=== PATIENT | female | born 1990 ===

== ENCOUNTER 2019-07-19 08:50 | Emergency (ER) | payer BC ==
[2019-07-19 09:09] VITALS: BP 91/48
--- NOTE | 2019-07-19 09:26 | UC ---
Complaint Female HPI - HPI Summary HPI Summary: 29yo female presenting with dysuria and hematuria since last night. Patient states she occasionally gets UTIs because she holds in her urine at work. Denies abdominal pain. Denies flank pain. Denies fever and chills. Denies n/v. Has not taken anything for symptom relief. - History Of Current Complaint Chief Complaint: UCGU Stated Complaint: URINARY Hx Obtained From: Patient Hx Last Menstrual Period: Dec ? Pain Intensity: 5 Pain Scale Used: 0-10 Numeric - Allergies/Home Medications Allergies/Adverse Reactions: Allergies Allergy/AdvReac Type Severity Reaction Status Date / Time No Known Allergies Allergy Verified 07/19/19 09:09 PMH/Surg Hx/FS Hx/Imm Hx Previously Healthy: Yes - Surgical History Surgical History: None - Family History Known Family History: Positive: Non-Contributory - Social History Alcohol Use: None Substance Use Type: None Smoking Status (MU): Never Smoked Tobacco Review of Systems All Other Systems Reviewed And Are Negative: Yes Constitutional: Positive: Negative. Negative: Fever, Chills Respiratory: Positive: Negative Cardiovascular: Positive: Negative Gastrointestinal: Positive: Negative. Negative: Abdominal Pain, Vomiting, Nausea Genitourinary: Positive: Dysuria, Hematuria Musculoskeletal: Positive: Negative Neurological: Positive: Negative Physical Exam Triage Information Reviewed: Yes Appearance: Well-Appearing, No Pain Distress, Well-Nourished Vital Signs: Initial Vital Signs Temp 98.0 F 07/19/19 09:03 Pulse 70 07/19/19 09:03 Resp 18 07/19/19 09:03 BP 91/48 07/19/19 09:03 Pulse Ox 100 07/19/19 09:03 Lab Results 07/19/19 Range/Units 09:19 POC Urine Color Dark yellow POC Urine Clarity Turbid POC Urine pH 6.5 (5-9) POC Ur Specif [place] 1.020 (1.010-1.030) POC Urine Protein 3+ A (Negative) POC Ur Glucose (UA) Negative (Negative) POC Urine Ketones Negative (Negative) POC Urine Blood 3+ A (Negative) POC Urine Nitrite Negative (Negative) POC Urine Bilirubin Negative (Negative) POC Urine Urobilinogen 0.2 (Negative) POC U Leukocyte Esteras 3+ A (Negative) Vital Signs Reviewed: Yes Eyes: Positive: Conjunctiva Clear ENT: Positive: Hearing grossly normal Neck: Positive: Supple Respiratory Exam: Normal Respiratory: Positive: Lungs clear, Normal breath sounds, No respiratory distress Cardiovascular Exam: Normal Cardiovascular: Positive: RRR Abdominal Exam: Normal Abdomen Description: Positive: Nontender, Soft. Negative: CVA Tenderness (R), CVA Tenderness (L) Neurological: Positive: Alert Psychological: Positive: Age Appropriate Behavior Skin Exam: Normal Complaint Female Dx - Course Course Of Treatment: PAtient presenting with dysuria and hematuria since last night. Afebrile. No abdominal or flank pain. No n/v. I treated patient with bactrim for UTI and prescribed pyridium for symptom relief. Instructed patient to increase fluid intake and follow up with pcp if symptoms persist. Instructed to go to ED with any new or worsening symptoms. Patient voiced understanding and agreed with treatment plan. - Differential Dx/Diagnosis Differential Diagnosis/HQI/PQRI: Urinary Tract Infection Provider Diagnosis: UTI (urinary tract infection) Discharge ED - Sign-Out/Discharge Documenting (check all that apply): Patient Departure All imaging exams completed and their final reports reviewed: No Studies - Discharge Plan Condition: Stable Disposition: HOME Prescriptions: Phenazopyridine TAB* [Pyridium 100 mg TAB*] 100 mg PO TID PRN #12 tab PRN Reason: Spasms - Bladder Sulfamethox/Trimethoprim DS* [Bactrim DS 800/160 TAB*] 1 tab PO BID 5 Days #10 tab Patient Education Materials: Urinary Tract Infection in Women (ED) Referrals: Esperanza Lopez MD [Primary Care Provider] - If Needed Additional Instructions: Take Bactrim for treatment of your UTI. You may also take the pyridium as needed for symptomatic relief. Increase your fluid intake. Follow up with your PCP if symptoms do not resolve. Return or go to emergency room with any new or worsening symptoms. - Billing Disposition and Condition Condition: STABLE Disposition: Home
== END 2019-07-19 09:35 | disposition home or self-care (01) ==
LOC: UCCORT 08:50
DX: N39.0 Urinary tract infection, site not specified (principal); R31.9 Hematuria, unspecified
CPT/HCPCS: 81003; 87086; 99212; G0463